=== PATIENT | male | born 1965 | race Caucasian/White ===

== ENCOUNTER 2016-11-14 10:22 | Outpatient (CLI) ==
[2016-08-28 12:18] VITALS: BMI 34.8
== END 2016-11-14 10:23 | disposition home or self-care (01) ==
LOC: LAB 10:22
PROVIDERS: ATTEND Nurse Practitioner Family
DX: J02.9 Acute pharyngitis, unspecified (principal)
CPT/HCPCS: 87651; 87880

== ENCOUNTER 2017-04-14 13:59 | Outpatient (CLI) ==
[2016-08-28 12:18] VITALS: BMI 34.8
[2017-04-14 14:21] LABS: BASOPHILS # (AUTO) 0.1 K/uL (0-0.2); BASOPHILS % (AUTO) 0.6 % (0.0-3.0); EOSINOPHILS % (AUTO) 0.3 % (0.0-7.0); HEMATOCRIT 44.7 % (42.0-52.0); HEMOGLOBIN 15.2 g/dl (14.0-18.0); IMMATURE GRANULOCYTE % (AUTO) 0.2 % (0.0-5.0); LYMPHOCYTES # (AUTO) 2.2 K/uL (0.60-3.4); MEAN CORPUSCULAR HEMOGLOBIN 29.6 pg (27.0-31.0); MEAN CORPUSCULAR VOLUME 87.1 fl (80.0-94.0); MONOCYTES # (AUTO) 0.5 K/uL (0.4-2.0); MONOCYTES % (AUTO) 5.9 (0-10); NEUTROPHILS # (AUTO) 6.2 K/ul (2.0-6.9); PLATELET COUNT 351 10^3/uL (140-440); RED BLOOD COUNT 5.13 10^6/ul (4.70-6.10); WHITE BLOOD COUNT 8.99 K/ul (4.2-10.2)
[2017-04-14 14:30] LABS: BILIRUBIN,URINE Negative (NEGATIVE); KETONES,URINE Negative (NEGATIVE); LEUKOCYTE ESTERASE ,URINE Negative (NEGATIVE); NITRITE,URINE Negative (NEGATIVE); PROTEIN,URINE Negative (NEGATIVE); URINE, BLOOD Trace-intact (NEGATIVE)
[2017-04-14 14:31] LABS: ADD URINE MICROSCOPIC YES
[2017-04-14 15:04] LABS: ALBUMIN/GLOBULIN RATIO 1.14; ANION GAP 15.6; BILIRUBIN,TOTAL 0.57 mg/dL (0.00-1.20); BUN/CREATININE RATIO 14.15; CALCIUM 9.5 mg/dL (8.2-10.2); CREATININE 1.13 mg/dL (0.60-1.10); POTASSIUM 4.6 mmol/L (3.5-5.1); TOTAL PROTEIN 7.5 g/dL (6.4-8.2)
== END 2017-04-14 14:00 | disposition home or self-care (01) ==
LOC: LAB 13:59
PROVIDERS: ATTEND Nurse Practitioner Family
DX: R10.84 Generalized abdominal pain (principal)
CPT/HCPCS: 36415; 80053; 81001; 82150; 83690; 85025; 93005; 93010

== ENCOUNTER 2018-10-06 19:29 | Emergency (ER) | payer OTHER ==
[2018-10-06 19:40] VITALS: BP 161/94; TEMP 97.6; BMI 38.7
[2018-10-06] MEDS ORDERED: LIDOCAINE HCL 1% SDV SUBCUT STA ×2 (19:42→19:44)
--- NOTE | 2018-10-06 20:05 | ED.PDOC ---
General ED Provider: Dr. GHANSHYAM REYES-ER Chief Complaint: Knee Pain/Injury Stated Complaint: i tripped and fell near the library Time Seen by Physician: 19:30 Mode of Arrival: Wheelchair Information Source: Patient Exam Limitations: No limitations Primary Care Provider: KENYA BAIN Nursing and Triage Documentation Reviewed and Agree: Yes Does patient meet sepsis criteria?: No System Inflammatory Response Syndrome: Not Applicable Sepsis Protocol: For patient's 13 years and over: Temp is 96.8 and below OR 101 and greater Pulse >90 BPM Resp >20/minute Acutely Altered Mental Status Are patient's symptoms suggestive of a new infection, such as: -Pneumonia -Skin, Soft Tissue -Endocarditis -UTI -Bone, Joint Infection -Implantable Device -Acute Abdominal Infection -Wound Infection -Meningitis -Blood Stream Catheter Infection -Unknown Trauma/Injury Complaint Exam - Trauma Complaint/Exam Location of Pain or Injury: Reports: RUE, RLE, LLE Mechanism of Injury: Reports: Fall Onset/Duration: a few min ago Symptoms Are: Still present Timing of Treatment: Immediate Initial Severity: Mild Current Severity: Mild Character: Reports: Dull, Aching Aggravating: Reports: Movement, Weight-bearing, Ambulation, Palpation Associated Signs and Symptoms: Reports: Bruising, Swelling. Denies: LOC, Confusion, Memory loss, Lethargy, Vomiting, Bleeding Penetrating Injury Risk Factors: Reports: None Immobilization Removed Post Exam: No Compartment Syndrome Risk Factors: Present: Pain Skin Findings: Present: Tenderness, Swelling, Ecchymosis, Hematoma, Contusion Differential Diagnoses: Abrasion, Contusions, Fracture, Hematoma Review of Systems - Review Of Systems Constitutional: Reports: No symptoms Eyes: Reports: No symptoms Ears, Nose, Mouth, Throat: Reports: No symptoms Respiratory: Reports: No symptoms Cardiac: Reports: No symptoms GI: Reports: No symptoms : Reports: No symptoms Musculoskeletal: Reports: Joint pain Skin: Reports: No symptoms Neurological: Reports: No symptoms Endocrine: Reports: No symptoms Hematologic/Lymphatic: Reports: No symptoms All Other Systems: Reviewed and Negative Past Medical History - Past Medical History Previously Healthy: Yes Endocrine: Reports: None Cardiovascular: Reports: None Respiratory: Reports: None Hematological: Reports: None Gastrointestinal: Reports: GERD Genitourinary: Reports: None Neuro/Psych: Reports: TIA Musculoskeletal: Reports: None, Other (left foot fracture) Cancer: Reports: None - Surgical History General Surgical History: Reports: Unknown - Family History Family History: Reports: Unknown - Social History Smoking Status: Never smoker Hx Substance Use: No Alcohol Screening: None - Immunizations Tetanus Shot up to Date: Yes Physical Exam - Physical Exam Appearance: Well-appearing, No pain distress, Well-nourished Eyes: MARITO, EOMI, Conjunctiva clear ENT: Ears normal, Nose normal, Oropharynx normal Neck: Supple Respiratory: Airway patent, Breath sounds clear, Breath sounds equal, Respirations nonlabored Cardiovascular: RRR, Pulses normal, No rub, No murmur GI/: Soft, Nontender, No masses, Bowel sounds normal, No Organomegaly Musculoskeletal: Limited ROM Skin: Warm Neurological: Sensation intact, Motor intact, Reflexes intact, Cranial nerves intact, Alert, Oriented Psychiatric: Affect appropriate, Mood appropriate, Anxious Interpretation - Radiology Interpretation Radiology Interpretation By: Radiologist Radiology Results: Negative Procedures - Laceration/Wound Repair No standard instances Wound Description: Linear Wound Length (cm): 2cm right knee Wound Explored: Clean Wound Irrigated: Yes Wound Prep: Hibiclens Anesthesia: Lidocaine Wound Debrided: Minimal Undermining: Minimal Wound Margins: Revised Wound Repaired With: Sutures Suture Size and Type: 4.o prolene Number of Sutures: 3 Layer Closure?: No Sterile Dressing Applied?: Yes Splint Applied?: No Sling Applied?: No Critical Care Note - Critical Care Note Total Time (mins): 0 Course - Course Orders, Labs, Meds: Orders Category Date Time Status Acetaminophen [Tylenol] MEDS 10/06/18 20:07 Discontinued 650 mg PO ONCE STA Lidocaine HCl/Pf [Lidocaine HCl 1% Sdv] MEDS 10/06/18 19:42 Discontinued 5 ml SUBCUT ONCE STA Lidocaine HCl/Pf [Lidocaine HCl 1% Sdv] MEDS 10/06/18 19:44 Discontinued 5 ml SUBCUT ONCE STA ELBOW, RIGHT MIN 3 VIEWS Stat RADS 10/06/18 19:57 Completed KNEE, LEFT 4 VIEWS Stat RADS 10/06/18 19:57 Completed KNEE, RIGHT 4 VIEWS Stat RADS 10/06/18 19:57 Completed WRIST, RIGHT 3 VIEWS Stat RADS 10/06/18 19:58 Completed Medications Discontinued Medications Generic Name Dose Route Start Last Admin Trade Name Freq PRN Reason Stop Dose Admin Acetaminophen 650 mg 10/06/18 20:07 01/29/19 20:22 Tylenol PO 10/06/18 20:08 650 mg ONCE STA Administration Lidocaine HCl 5 ml 10/06/18 19:42 10/06/18 20:09 Lidocaine Hcl 1% Sdv SUBCUT 10/06/18 19:43 5 ml ONCE STA Administration Lidocaine HCl 5 ml 10/06/18 19:44 10/06/18 20:09 Lidocaine Hcl 1% Sdv SUBCUT 10/06/18 19:45 Not Given ONCE STA Vital Signs: Temp Pulse Resp BP Pulse Ox 10/06/18 19:30 97.6 F 99 H 20 161/94 H 99 Departure - Departure Time of Disposition: 20:38 Disposition: HOME SELF-CARE Discharge Problem: Injury of knee Instructions: Laceration (ED), Care For Your Stitches (ED) Condition: Good Pt referred to PMD for follow-up: Yes IPMP verified?: No Additional Instructions: keep clean and dry---sutures out in 7 days--call if ay sigs of infection--- tylenol for paIn Allergies/Adverse Reactions: Allergies No Known Allergies Allergy (Verified 10/06/18 19:34) Home Medications: Ambulatory Orders Ranitidine HCl [Zantac] 150 mg PO BID 04/14/17 Disposition Discussed With: Patient
[2018-10-06] MEDS ORDERED: TYLENOL PO STA (20:07)
--- NOTE | 2018-10-06 20:35 | DI ---
EXAM: Four views of the right knee. History: Right knee trauma. Findings: No acute fracture or dislocation. No abnormal calcifications or radiopaque foreign bodies . Joint spaces are preserved. Impression: No acute osseous abnormality
--- NOTE | 2018-10-06 20:35 | DI ---
EXAM: Three views of the right elbow HISTORY: Fall. COMPARISON: None FINDINGS: There is no cortical irregularity or displaced fracture. There is normal articulation of t he radial head and the capitellum. There is no lytic or blastic lesion. There is no periosteal reac tion. Soft tissues are unremarkable. IMPRESSION: No acute abnormality of the right elbow.
--- NOTE | 2018-10-06 20:35 | DI ---
EXAM: Four views of the left knee. History: Left knee trauma. Findings: No acute fracture or dislocation. No abnormal calcifications or radiopaque foreign bodies . Joint spaces are relatively preserved. Impression: No acute osseous abnormality
--- NOTE | 2018-10-06 20:35 | DI ---
EXAM: Three views of the right wrist. History: Right wrist trauma. Findings: No acute fracture or dislocation. Mild polyarticular joint space narrowing. No abnormal calcifications or radiopaque foreign bodies. Impression: No acute osseous abnormality
== END 2018-10-06 20:45 | disposition home or self-care (01) ==
LOC: ED 19:29
DX: S81.011A Laceration without foreign body, right knee, initial encounter (principal); S89.92XA Unspecified injury of left lower leg, initial encounter; S49.91XA Unspecified injury of right shoulder and upper arm, initial encounter; W01.0XXA Fall on same level from slipping, tripping and stumbling without subsequent striking against object, initial encounter
CPT/HCPCS: 99282; 99283